=== PATIENT | male | born 1965 | race American Indian/Alaskan Native ===

== ENCOUNTER 2017-11-03 10:38 | Emergency (ER) | payer MEDICARE ==
--- NOTE | 2017-11-03 11:31 | Emergency Department Report ---
ED Abdominal Pain HPI - General Chief Complaint: Pain General Stated Complaint: NECK PAIN Time Seen by Provider: 11/03/17 11:11 Source: patient Mode of arrival: Ambulatory Limitations: No Limitations - History of Present Illness Initial Comments: This is a 52-year-old male here with left facial pain and swelling that started this morning. He reports that is located just anteriorly to his left ear. He is also reported that he was diagnosed with umbilical hernia 2 months ago in [place]. He said that he is having nausea and abdominal pain and denies any vomiting or diarrhea. Pain is 7 out 10 achy to his abdomen and left facial area. No medication taken. Denies any fever or chills. Denies any vomiting of blood or blood in his stool. Patient is a history of COPD hypertension and irregular heartbeat. Denies any urinary burning frequency or urgency. No pain medication taken. No alleviating factors but pain is exacerbated by touch and palpation. Patient blood pressure is 143/104 and he is asymptomatic but reports that he has not taken his medication this morning. MD Complaint: abdominal pain, other (left facial swelling) -: This morning Location: periumbilical (and left facial area) Radiation: none Migration to: no migration Severity: severe Severity scale (0 -10): 7 Quality: aching Consistency: constant Improves With: nothing Worsens With: other (palpation to face and abdomen) Associated Symptoms: nausea, other (left facial swelling with pain.). denies: vomiting, diarrhea, fever, chills, constipation, dysuria, hematemesis, hematochezia, melena, hematuria, anorexia, syncope Treatments Prior to Arrival: other (none) - Related Data Previous Rx's Medication Instructions Recorded Last Taken Type Ciprofloxacin HCl [Ciprofloxacin 500 mg PO Q12H 10 Days #20 tab 11/03/17 Unknown Rx TAB] Ondansetron [Zofran TAB] 8 mg PO Q8HR PRN #15 tablet 11/03/17 Unknown Rx traMADol [Ultram 50 MG tab] 50 mg PO Q6HR PRN #20 tablet 11/03/17 Unknown Rx Allergies Allergy/AdvReac Type Severity Reaction Status Date / Time No Known Allergies Allergy Unverified 11/03/17 10:44 ED Review of Systems ROS: Stated complaint: NECK PAIN Other details as noted in HPI Constitutional: denies: chills, fever Eyes: denies: eye pain, eye discharge, vision change ENT: denies: ear pain, throat pain, congestion Respiratory: denies: cough, shortness of breath, SOB with exertion, SOB at rest , wheezing Cardiovascular: denies: chest pain, palpitations, dyspnea on exertion, edema, syncope Gastrointestinal: abdominal pain, nausea. denies: vomiting, diarrhea, constipation, hematemesis, melena, hematochezia Genitourinary: denies: urgency, dysuria, frequency, hematuria, discharge, testicular pain, testicular mass Musculoskeletal: arthralgia (left facial pain and swelling). denies: back pain , joint swelling, myalgia Skin: denies: rash, lesions Neurological: denies: headache, weakness, numbness, paresthesias, vertigo ED Past Medical Hx - Past Medical History Previous Medical History?: Yes Hx Hypertension: Yes Hx COPD: Yes Additional medical history: irreg heartbeat - Surgical History Past Surgical History?: Yes Additional Surgical History: head, abd - Family History Family history: hypertension - Social History Smoking Status: Never Smoker Substance Use Type: Marijuana - Medications Home Medications: Home Medications Medication Instructions Recorded Confirmed Last Taken Type Ciprofloxacin HCl [Ciprofloxacin 500 mg PO Q12H 10 Days #20 tab 11/03/17 Unknown Rx TAB] Ondansetron [Zofran TAB] 8 mg PO Q8HR PRN #15 tablet 11/03/17 Unknown Rx traMADol [Ultram 50 MG tab] 50 mg PO Q6HR PRN #20 tablet 11/03/17 Unknown Rx ED Physical Exam - General Limitations: No Limitations General appearance: alert, in no apparent distress - Head Head exam: Present: atraumatic, normocephalic, normal inspection, other (normal exam) - Eye Eye exam: Present: normal appearance, PERRL, EOMI. Absent: periorbital swelling , periorbital tenderness Pupils: Present: normal accommodation - ENT ENT exam: Present: normal exam, normal orophraynx, mucous membranes moist, TM's normal bilaterally, normal external ear exam, other (bilateral nasal mucosa normal exam. No frontal or maxillary sinus tenderness.) - Expanded ENT Exam Expanded Mouth exam: Present: normal external inspection, tongue normal Teeth exam: Present: normal inspection Throat exam: Positive: normal inspection, other (patient with swelling anteriorly to left ear at parotid gland area. Tenderness to palpate without any erythema) - Neck Neck exam: Present: normal inspection, full ROM, other (no C-spine tenderness). Absent: tenderness, lymphadenopathy - Respiratory Respiratory exam: Present: normal lung sounds bilaterally. Absent: respiratory distress, wheezes, rales, rhonchi, stridor, chest wall tenderness - Cardiovascular Cardiovascular Exam: Present: regular rate, normal rhythm, normal heart sounds. Absent: systolic murmur, diastolic murmur - GI/Abdominal GI/Abdominal exam: Present: soft, tenderness (periumbilical area without any erythema), guarding, normal bowel sounds, hernia ( umbilical hernia tenderness to palpate. With prescription off umbilical.). Absent: distended, rebound, rigid, organomegaly, mass, bruit, pulsatile mass - Extremities Exam Extremities exam: Present: normal inspection, full ROM, normal capillary refill , other (No cce. + 2 pulses in all extremities, no neurovascular compromise). Absent: tenderness, pedal edema, joint swelling, calf tenderness - Back Exam Back exam: Present: normal inspection, full ROM, other (ambulates without any difficulties). Absent: tenderness, CVA tenderness (R), CVA tenderness (L), muscle spasm, paraspinal tenderness, vertebral tenderness, rash noted - Neurological Exam Neurological exam: Present: alert, oriented X3 - Psychiatric Psychiatric exam: Present: normal affect, normal mood - Skin Skin exam: Present: warm, dry, intact, normal color. Absent: rash ED Course Vital Signs 11/03/17 11/03/17 10:44 13:58 Temperature 97.5 F L Pulse Rate 86 Respiratory 18 Rate Blood Pressure 143/104 Blood Pressure 140/92 [Left] O2 Sat by Pulse 98 Oximetry Lab Results 11/03/17 11/03/17 Range/Units 11:40 11:40 WBC 14.9 H (4.5-11.0) K/mm3 RBC 5.80 H (3.65-5.03) M/mm3 Hgb 13.1 (11.8-15.2) gm/dl Hct 41.4 (35.5-45.6) % MCV 71 L (84-94) fl MCH 23 L (28-32) pg MCHC 32 (32-34) % RDW 17.5 H (13.2-15.2) % Plt Count 250 (140-440) K/mm3 Lymph % (Auto) 22.5 (13.4-35.0) % Sanborn % (Auto) 9.1 H (0.0-7.3) % Eos % (Auto) 0.4 (0.0-4.3) % Baso % (Auto) 0.4 (0.0-1.8) % Lymph # 3.4 (1.2-5.4) K/mm3 Sanborn # 1.4 H (0.0-0.8) K/mm3 Eos # 0.1 (0.0-0.4) K/mm3 Baso # 0.1 (0.0-0.1) K/mm3 Seg Neutrophils % 67.6 (40.0-70.0) % Seg Neutrophils # 10.1 H (1.8-7.7) K/mm3 Sodium 142 (137-145) mmol/L Potassium 4.3 (3.6-5.0) mmol/L Chloride 104.9 (98-107) mmol/L Carbon Dioxide 28 (22-30) mmol/L Anion Gap 13 mmol/L BUN 10 (9-20) mg/dL Creatinine 1.4 (0.8-1.5) mg/dL Estimated GFR > 60 ml/min BUN/Creatinine Ratio 7 % Glucose 91 (75-100) mg/dL Calcium 9.6 (8.4-10.2) mg/dL Total Bilirubin 0.20 (0.1-1.2) mg/dL AST 19 (5-40) units/L ALT 20 (7-56) units/L Alkaline Phosphatase 72 (35-129) units/L Total Protein 6.6 (6.3-8.2) g/dL Albumin 3.6 L (3.9-5) g/dL Albumin/Globulin Ratio 1.2 % Lipase 114 H (13-60) units/L Vital Signs 11/03/17 11/03/17 10:44 13:58 Temperature 97.5 F L Pulse Rate 86 Respiratory 18 Rate Blood Pressure 143/104 Blood Pressure 140/92 [Left] O2 Sat by Pulse 98 Oximetry - Reevaluation(s) Reevaluation #1: 11/03/17 14:06 Patient given Toradol 30 mg iv, zofran 8 mg iv and normal saline 1 L. Pain has relieved. No change in abdominal assessment. Patient awaiting CT scan Reevaluation #2: 08/05/18 15:04 His pain is better after IV fluid, Toradol and Zofran. Reevaluation #3: 11/03/17 15:[address] Guzman is called and awaiting callback. Patient informed on CT scan results and laboratory results and I told him that Gen. surgery callback. He says his abdominal pain is better. Still having pain to his left facial area. 11/03/17 15:30 ED Medical Decision Making - Lab Data Result diagrams: 11/03/17 11:40 11/03/17 11:40 Lab Results 11/03/17 11/03/17 Range/Units 11:40 11:40 WBC 14.9 H (4.5-11.0) K/mm3 RBC 5.80 H (3.65-5.03) M/mm3 Hgb 13.1 (11.8-15.2) gm/dl Hct 41.4 (35.5-45.6) % MCV 71 L (84-94) fl MCH 23 L (28-32) pg MCHC 32 (32-34) % RDW 17.5 H (13.2-15.2) % Plt Count 250 (140-440) K/mm3 Lymph % (Auto) 22.5 (13.4-35.0) % Sanborn % (Auto) 9.1 H (0.0-7.3) % Eos % (Auto) 0.4 (0.0-4.3) % Baso % (Auto) 0.4 (0.0-1.8) % Lymph # 3.4 (1.2-5.4) K/mm3 Sanborn # 1.4 H (0.0-0.8) K/mm3 Eos # 0.1 (0.0-0.4) K/mm3 Baso # 0.1 (0.0-0.1) K/mm3 Seg Neutrophils % 67.6 (40.0-70.0) % Seg Neutrophils # 10.1 H (1.8-7.7) K/mm3 Sodium 142 (137-145) mmol/L Potassium 4.3 (3.6-5.0) mmol/L Chloride 104.9 (98-107) mmol/L Carbon Dioxide 28 (22-30) mmol/L Anion Gap 13 mmol/L BUN 10 (9-20) mg/dL Creatinine 1.4 (0.8-1.5) mg/dL Estimated GFR > 60 ml/min BUN/Creatinine Ratio 7 % Glucose 91 (75-100) mg/dL Calcium 9.6 (8.4-10.2) mg/dL Total Bilirubin 0.20 (0.1-1.2) mg/dL AST 19 (5-40) units/L ALT 20 (7-56) units/L Alkaline Phosphatase 72 (35-129) units/L Total Protein 6.6 (6.3-8.2) g/dL Albumin 3.6 L (3.9-5) g/dL Albumin/Globulin Ratio 1.2 % Lipase 114 H (13-60) units/L - Radiology Data Radiology results: report reviewed Patient has CT scan of the abdomen and pelvis with IV contrast which is dictated by radiologist report reviewed. Please see details below. Patient: EVA HUNT MR#: [id number] : 1965 Acct:[id number] Age/Sex: 52 / M ADM Date: 11/03/17 Loc: ED Attending Dr: Ordering Physician: NAN LUA Date of Service: 11/03/17 Procedure(s): CT abdomen pelvis w con Accession Number(s): [id number] cc: NAN LUA FINAL REPORT EXAM: CT ABDOMEN PELVIS W CON HISTORY: periumbilical pain hx/hernia COMPARISON: None. TECHNIQUE: Multiple contiguous axial images were obtained from the lung bases to the pubic symphysis after administration of IV contrast. Reformatted sagittal and coronal images were available for review. FINDINGS: Lung bases: Minimal dependent atelectasis. Visualized heart and mediastinum: Normal. Liver: Normal. Spleen: Normal. Pancreas: Normal. Gallbladder and Biliary Tree: No calcified gallstones. No biliary ductal dilatation. Adrenal glands: Normal. Kidneys: Symmetric enhancement to both kidneys. No hydronephrosis. 1.4 centimeter simple appearing cyst in the inferior pole of the right kidney. 1.2 centimeter simple appearing cyst in the superior pole of the left kidney. Bladder: Normal. Pelvic organs: Normal prostate gland and seminal vesicles. Bowel: No focal wall thickening. No evidence of obstruction. Normal appendix without surrounding inflammatory change. Diverticulosis of the descending and sigmoid colon without evidence of diverticulitis. Peritoneum: No significant mesenteric adenopathy. No free air or free fluid. Vasculature: Abdominal aorta is normal in caliber without evidence of aneurysm. Normal appearance of the portal venous system and inferior vena cava. Bones and soft tissues: No suspicious osseous lesions. No acute fracture or dislocation. 4.2 x 3.2 x 3.7 centimeter fat containing periumbilical hernia with a 1.9 centimeter neck. There is some stranding within the herniated fat that may represent inflammation or strangulation. IMPRESSION: 1. 4.2 x 3.2 x 3.7 centimeter fat containing periumbilical hernia with stranding of the herniated fat concerning for infection, inflammation, or strangulation. 2. Nonobstructive bowel gas pattern. 3. Diverticulosis of the descending and sigmoid colon without evidence of diverticulitis. 4. Simple appearing cysts of the bilateral kidneys. Transcribed By: MARIELENA Dictated By: LUCILA HUNTLEY MD Electronically Authenticated By: LUCILA HUNTLEY MD Signed Date/Time: 11/03/171445 DD/ 45 TD/TT: 11/03/171445 - Medical Decision Making This is a 52-year-old male here report that he has umbilical hernia that was diagnosed by a doctor in [place] and he just moved to [facility]. He states that he is having recurrent pain to his umbilical area and is concerned. He is also complaining of pain to left facial area anterior to the left ear. Patient is here to be evaluated. Patient was seen by myself and examined and also assessed by Dr. Rees. physical finding is normal except he has protrusion of umbilical tenderness palpated around umbilical area. Positive guarding without any rebound. No erythema. No bulging. No distention. No rigidity. Bowel sounds are normal throughout abdomen. Patient with normal bowel movements with last one being this morning. Patient has no urinary symptoms. physical findings for mild swelling to parotid gland area on the left side with posterior auricular lymphadepathy. Oral exam is normal. Bilateral ear exam is normal with no mastoid bone tenderness or no tenderness to tragus. Patient vital signs remained stable throughout ED course and his blood pressure is better. He was given pain medication and reports that his abdominal pain has resolved and abdominal exam better after pain medication. He still has some swelling to his left facial area and parotid gland. I discussed the patient diagnosis. Laboratory findings include CBC with elevated white count otherwise stable, lipase is elevated and his CMP is normal. CT findings of abdomen and pelvis with IV contrast dictated by radiologist and reports reviewed by myself and Dr. Rees. Suggests umbilical hernia with fat stranding in but no bowel obstruction. Patient with diverticulosis without diverticulitis. Radiologist questioned in strangulation versus inflammation of umbilical fat. I spoke with general surgeon was Dr. Dunne and he asked to speak with Dr. Rees. He was given results of CT scan findings laboratory findings. He wants patient to follow up with him in his office for evaluation. He has no concern for acute abdomen. Patient was given IV fluid normal saline 1 L, Zofran 8 mg IV and Toradol 30 mg IV for relief of pain. Patient was understanding the diagnosis, CT scan results and need to follow-up. Periumbilical abdominal pain-better with Toradol and will be sent home on Ultram Umbilical hernia-patient to follow up with general surgeon Dr. Beard. No acute abdomen. The CT scan results for details on results. Parotiditis with adenitis-patient will be sent home on antibiotic. Instructed to follow up with ENT Nausea-resolved with Zofran and will sent home and Zofran Leukocytosis-patient will be placed on antibiotic. Please refer his laboratory findings. Elevated lipase-he denies any history of pancreatitis or any history of alcoholism. He will be followed by general surgeon and [facility] as he does not have a primary care physician. I instructed the patient of his diagnosis and I instructed him that he needs to follow-up with the general surgeon which would be in his discharge instruction paperwork. I instructed him that if he has increase in abdominal pain, fever, chills, increased swelling to his facial area, nausea and/or vomiting in, abdominal distention and pressure with protrusion to return to the emergency room GARY otherwise follow-up with general surgeon. He voiced understanding and Pt discharged home with prescription for Zofran, Cipro and Ultram. He is to call [facility] and ear nose and throat tomorrow to schedule an appointment to be seen in 2 days for parotid gland infection. he does not have a primary care doctor or access to a primary care doctor he is also to call Dr. Beard office tomorrow to schedule an appointment for follow-up visit in 2 days for umbilical hernia. Vital signs are stable, he is afebrile, pain and nausea has resolved. - Differential Diagnosis abdominal hernia perforation vs abscess, mass, pancreatitis, GBD,Colitis Critical care attestation.: If time is entered above; I have spent that time in minutes in the direct care of this critically ill patient, excluding procedure time. ED Disposition Clinical Impression: Parotiditis, Salivary gland adenitis, Abdominal pain, periumbilic, Umbilical hernia without obstruction and without gangrene Disposition: TO HOME OR SELFCARE Is pt being admited?: No Does the pt Need Aspirin: No Condition: Stable Instructions: Sialoadenitis (ED), Adenitis (ED), Parotid Duct Obstruction (ED) Additional Instructions: Please try to chew on sour candy several times a day to increase salivation and this will make you feel better Take antibiotic as prescribed Increasing fluid intake Zofran for nausea Ultram for pain but please do not drive or operate heavy machinery as medication causes drowsiness Follow-up her current abdominal pain, bloating, fever or chills, increased facial swelling, nausea and vomiting and generalized weakness is return to the emergency room GARY Follow-up with [facility], ear nose and throat doctor and general surgeon Dr. Beard in 2 days. Please see discharge instructions and paperwork for phone number and address and call tomorrow to schedule outpatient visit. Prescriptions: Ciprofloxacin HCl [Ciprofloxacin TAB] 500 mg PO Q12H 10 Days #20 tab Ondansetron [Zofran TAB] 8 mg PO Q8HR PRN #15 tablet PRN Reason: Nausea And Vomiting traMADol [Ultram 50 MG tab] 50 mg PO Q6HR PRN #20 tablet PRN Reason: Pain Referrals: TINO BARRERA MD [Staff Physician] - 11/05/17 [facility] [Outside] - 11/05/17 RENE BEARD MD [Staff Physician] - 11/05/17 Forms: Work/School Release Form(ED)
[2017-11-03] MEDS ORDERED: NACL 0.9% 1000 ML 1,000 ML IV ONE (11:33)
[2017-11-03] MEDS ORDERED: ZOFRAN IV ONE (11:33)
[2017-11-03] MEDS ORDERED: TORADOL IV ONE (11:33)
[2017-11-03 12:10] LABS: Basophils # (Auto) 0.1 K/mm3 (0.0-0.1); Basophils % (Auto) 0.4 % (0.0-1.8); Eosinophils # (Auto) 0.1 K/mm3 (0.0-0.4); Eosinophils % (Auto) 0.4 % (0.0-4.3); Hematocrit 41.4 % (35.5-45.6); Hemoglobin 13.1 gm/dl (11.8-15.2); Lymphocytes # (Auto) 3.4 K/mm3 (1.2-5.4); Lymphocytes % (Auto) 22.5 % (13.4-35.0); Mean Corpuscular HGB Conc 32 % (32-34); Mean Corpuscular Volume 71 fl (84-94); Monocytes # (Auto) 1.4 K/mm3 (0.0-0.8); Monocytes % (Auto) 9.1 % (0.0-7.3); Platelet Count 250 K/mm3 (140-440); Red Cell Distribution Width 17.5 % (13.2-15.2)
[2017-11-03 12:20] LABS: Mean Corpuscular Hemoglobin 23 pg (28-32)
[2017-11-03 12:57] LABS: Alanine Aminotransferase 20 units/L (7-56); Albumin 3.6 g/dL (3.9-5); BUN/Creatinine Ratio 7; Blood Urea Nitrogen 10 mg/dL (9-20); Calcium 9.6 mg/dL (8.4-10.2); Hemolysis Index 1; Lipase 114 units/L (13-60)
--- NOTE | 2017-11-03 14:51 | Cat Scan Report ---
FINAL REPORT EXAM: CT ABDOMEN PELVIS W CON HISTORY: periumbilical pain hx/hernia COMPARISON: None. TECHNIQUE: Multiple contiguous axial images were obtained from the lung bases to the pubic symphysis after administration of IV contrast. Reformatted sagittal and coronal images were available for review. FINDINGS: Lung bases: Minimal dependent atelectasis. Visualized heart and mediastinum: Normal. Liver: Normal. Spleen: Normal. Pancreas: Normal. Gallbladder and Biliary Tree: No calcified gallstones. No biliary ductal dilatation. Adrenal glands: Normal. Kidneys: Symmetric enhancement to both kidneys. No hydronephrosis. 1.4 centimeter simple appearing cyst in the inferior pole of the right kidney. 1.2 centimeter simple appearing cyst in the superior pole of the left kidney. Bladder: Normal. Pelvic organs: Normal prostate gland and seminal vesicles. Bowel: No focal wall thickening. No evidence of obstruction. Normal appendix without surrounding inflammatory change. Diverticulosis of the descending and sigmoid colon without evidence of diverticulitis. Peritoneum: No significant mesenteric adenopathy. No free air or free fluid. Vasculature: Abdominal aorta is normal in caliber without evidence of aneurysm. Normal appearance of the portal venous system and inferior vena cava. Bones and soft tissues: No suspicious osseous lesions. No acute fracture or dislocation. 4.2 x 3.2 x 3.7 centimeter fat containing periumbilical hernia with a 1.9 centimeter neck. There is some stranding within the herniated fat that may represent inflammation or strangulation. IMPRESSION: 1. 4.2 x 3.2 x 3.7 centimeter fat containing periumbilical hernia with stranding of the herniated fat concerning for infection, inflammation, or strangulation. 2. Nonobstructive bowel gas pattern. 3. Diverticulosis of the descending and sigmoid colon without evidence of diverticulitis. 4. Simple appearing cysts of the bilateral kidneys.
--- NOTE | 2017-11-03 15:39 | Emergency Department Report ---
Blank Doc - Documentation Documentation: Patient was seen and examined by myself, as well as the nurse practitioner. The patient has what appears to be a reducible umbilical hernia. He is currently pain-free in the abdomen. CT scan of the abdomen and pelvis shows no signs of any bowel involvement as there is no bowel inflammation or thickening and no signs of any obstruction. It was read as most likely to be a fat filled hernia that could show inflammation versus strangulation. We spoke with the general surgeon on-call, Dr. Beard, who says that if there is no bowel involvement that it is not concerning for any emergent intervention necessary and the patient can follow-up in the office in the next day or so. I discussed with the patient about decreasing intra-abdominal pressure. We discussed the reasons to return to the emergency department urgently including abdominal distention, nonreducible hernia, development of fever, inability to have a bowel movement, nausea with vomiting. Patient's vital signs stable.
[2017-11-03 16:18] VITALS: BP 150/112
== END 2017-11-03 16:19 | disposition home or self-care (01) ==
LOC: ED 10:38
DX: K42.9 Umbilical hernia without obstruction or gangrene (principal); K11.20 Sialoadenitis, unspecified; I10 Essential (primary) hypertension; J44.9 Chronic obstructive pulmonary disease, unspecified; F12.10 Cannabis abuse, uncomplicated
CPT/HCPCS: 36415; 74177; 80053; 83690; 85025; 96361; 96374; 96375; 99284; J1885; J2405; J7030; Q9967